=== PATIENT | female | born 2000 | race Caucasian/White ===

== ENCOUNTER 2023-10-09 10:57 | Day surgery (SDC) | payer OTHER ==
[2023-10-09] MEDS ORDERED: hydrALAZINE 20 MG/ML VIAL SLOW IVP PRN (11:44)
[2023-10-09] MEDS ORDERED: Lactated Ringer's 1,000 ML IV SCH ×2 (11:45→13:30)
[2023-10-09 12:04] VITALS: BMI 23.5
[2023-10-09 12:57] VITALS: TEMP 100.3
[2023-10-09] MEDS ORDERED: Acetaminophen 500 MG TAB PO SCH (13:00)
[2023-10-09 13:57] LABS: Bilirubin Neg (Negative); Blood, Urine 10 (Negative); Clarity Cloudy (Clear); Glucose, Urine (Dipstick) Normal (Negative); Ketone, Urine Negative (Negative); Leukocyte Negative (Negative); Nitrite Negative (Negative); Protein, Urine (Dipstick) 15 mg/dl (Neg-Trace); Urobilinogen Normal mg/dL (Less than 2)
[2023-10-09 14:15] LABS: Bacteria/HPF 2+ HPF (None Seen); CAUTI Indications for Culture Fever or rigors; RBC/HPF 0-3 HPF (0-3)
[2023-10-09 14:18] LABS: Urine Culture Reflex No No
[2023-10-09 14:43] LABS: SARS-CoV-2 NAA Rapid Test Not Detected (NotDetected)
== END 2023-10-09 14:45 | disposition home or self-care (01) ==
LOC: CSHLD/OP 10:57
PROVIDERS: ATTEND Obstetrics & Gynecology
DX: O99.512 Diseases of the respiratory system complicating pregnancy, second trimester (principal); J06.9 Acute upper respiratory infection, unspecified; O99.891 Other specified diseases and conditions complicating pregnancy; M54.9 Dorsalgia, unspecified; O21.9 Vomiting of pregnancy, unspecified; O99.612 Diseases of the digestive system complicating pregnancy, second trimester; K59.00 Constipation, unspecified; O09.32 Supervision of pregnancy with insufficient antenatal care, second trimester; O99.412 Diseases of the circulatory system complicating pregnancy, second trimester; I95.9 Hypotension, unspecified; R00.0 Tachycardia, unspecified; Z79.899 Other long term (current) drug therapy; Z3A.20 20 weeks gestation of pregnancy
CPT/HCPCS: 0241U; 81001; 96360; 96361; 99284